=== PATIENT | male | born 1975 | race American Indian/Alaskan Native ===

== ENCOUNTER 2020-06-20 09:20 | Emergency (ER) | payer OTHER ==
[2020-06-20 09:39] VITALS: BP 157/100
[2020-06-20] MEDS ORDERED: IBUPROFEN 800 MG TAB PO ONE (12:37)
--- NOTE | 2020-06-20 12:42 | Emergency Department Report ---
ED ENT HPI - General Chief complaint: Skin/Abscess/Foreign Body Stated complaint: FACE SWOLLEN Time Seen by Provider: 06/20/20 12:37 Source: patient Mode of arrival: Ambulatory Limitations: No Limitations - History of Present Illness Initial comments: 45-year-old -[place] male presents to the emergency room for left-sided facial swelling with a bad tooth. Patient states he tried calling his dentist but they were closed. Patient reports he did not take his blood pressure medication today. Patient reports he is aware that he has a few teeth that need to be repaired. Patient denies any fever chills no nausea no vomiting. Patient states he is able to eat and drink without any problems. Patient did not take any pain medication for this. MD complaint: tooth pain Onset/Timin -: days(s) Severity scale (0 -10): 8 Quality: aching Consistency: constant Improves with: none Worsens with: none Context- Dental: history of dental caries, poor dental care Associated Symptoms: gum swelling, toothache - Related Data Previous Rx's Medication Instructions Recorded Last Taken Type Clindamycin [Clindamycin CAP] 300 mg PO Q8H 10 Days #30 cap 06/20/20 Unknown Rx Ibuprofen [Motrin 800 MG tab] 800 mg PO Q8HR PRN #30 tablet 06/20/20 Unknown Rx Allergies Allergy/AdvReac Type Severity Reaction Status Date / Time No Known Allergies Allergy Unverified 06/20/20 09:36 ED Dental HPI - General Chief complaint: Skin/Abscess/Foreign Body Stated complaint: FACE SWOLLEN Time Seen by Provider: 06/20/20 12:37 Source: patient Mode of arrival: Ambulatory Limitations: No Limitations - Related Data Previous Rx's Medication Instructions Recorded Last Taken Type Clindamycin [Clindamycin CAP] 300 mg PO Q8H 10 Days #30 cap 06/20/20 Unknown Rx Ibuprofen [Motrin 800 MG tab] 800 mg PO Q8HR PRN #30 tablet 06/20/20 Unknown Rx Allergies Allergy/AdvReac Type Severity Reaction Status Date / Time No Known Allergies Allergy Unverified 06/20/20 09:36 ED Review of Systems ROS: Stated complaint: FACE SWOLLEN Other details as noted in HPI Comment: All other systems reviewed and negative ED Past Medical Hx - Past Medical History Previous Medical History?: Yes Hx Hypertension: Yes - Surgical History Past Surgical History?: No - Social History Smoking Status: Never Smoker Substance Use Type: None - Medications Home Medications: Home Medications Medication Instructions Recorded Confirmed Last Taken Type Clindamycin [Clindamycin CAP] 300 mg PO Q8H 10 Days #30 cap 06/20/20 Unknown Rx Ibuprofen [Motrin 800 MG tab] 800 mg PO Q8HR PRN #30 tablet 06/20/20 Unknown Rx ED Physical Exam - General Limitations: No Limitations General appearance: alert - Head Head exam: Present: atraumatic, normocephalic - ENT ENT exam: Present: mucous membranes moist - Expanded ENT Exam Expanded Teeth exam: Present: dental tenderness #, gingival enlargement - Neck Neck exam: Present: normal inspection - Extremities Exam Extremities exam: Present: normal inspection - Neurological Exam Neurological exam: Present: alert, oriented X3, normal gait - Psychiatric Psychiatric exam: Present: normal affect, normal mood - Skin Skin exam: Present: warm, dry, intact, normal color. Absent: rash ED Course Vital Signs 06/20/20 09:35 Temperature 99.3 F Pulse Rate 83 Respiratory 18 Rate Blood Pressure 157/100 O2 Sat by Pulse 96 Oximetry ED Medical Decision Making - Medical Decision Making 45-year-old -[place] male presents to the emergency room for left-sided facial swelling with a bad tooth. Patient states he tried calling his dentist but they were closed. Patient reports he did not take his blood pressure medication today. Patient reports he is aware that he has a few teeth that need to be repaired. Patient denies any fever chills no nausea no vomiting. Patient states he is able to eat and drink without any problems. Patient did not take any pain medication for this. Patient will be treated with clindamycin 300 mg 3 times daily x10 days and ibuprofen 800 mg 3 times daily as needed. Discussed with patient that I will refer him to a dentist. Patient verbalized understanding. Critical care attestation.: If time is entered above; I have spent that time in minutes in the direct care of this critically ill patient, excluding procedure time. ED Disposition Clinical Impression: Dental abscess Disposition: DC-01 TO HOME OR SELFCARE Is pt being admited?: No Does the pt Need Aspirin: No Condition: Stable Instructions: Dental Abscess (ED) Additional Instructions: Please take antibiotics and pain medication as needed follow-up with a dentist. Increase fluid intake. Prescriptions: Clindamycin [Clindamycin CAP] 300 mg PO Q8H 10 Days #30 cap Ibuprofen [Motrin 800 MG tab] 800 mg PO Q8HR PRN #30 tablet PRN Reason: Pain , Severe (7-10) Referrals: PRIMARY CARE, [Primary Care Provider] - 3-5 Days [facility] [Outside] - 3-5 Days [facility] [Outside] - 3-5 Days [facility] [Provider Group] - 3-5 Days Forms: Work/School Release Form(ED)
== END 2020-06-20 13:00 | disposition home or self-care (01) ==
LOC: ED 09:20
DX: K04.7 Periapical abscess without sinus (principal); I10 Essential (primary) hypertension; Z79.899 Other long term (current) drug therapy
CPT/HCPCS: 99282